=== PATIENT | female | born 1975 | race Two or more races ===

== ENCOUNTER → 2024-10-03 | Outpatient (CLI) | payer MEDICAID, SELFPAY ==
--- NOTE | 2024-10-03 13:41 | XR_ITS ---
Examination: Breast ultrasound, unilateral, right complete Date and time of exam: October 03, 2024 1352 hours INDICATIONS: Right breast sonogram July 29, 2024 12:00 nodule lobular margins 1:00 nodule indistinct margins 19 x 16 mm, biopsy August 13, 20242023 Technique: Real-time ho scale ultrasonographic imaging performed right breast including all 4 quadrants as well as nipple retroareolar and axillary region. Findings: 1:00 cyst 7 x 7 mm 1:00 oval mass biopsied, 13 x 8 x 10 mm, lobular margins 2:00 cyst 6 x 6 mm 9:00 cyst 7 x 6 mm IMPRESSION: BI-RADS Category 3: Probably benign findings Recommend 1 additional 6 month right breast sonogram follow-up to document stability of nodule in the 1:00 position
== END | disposition home or self-care (01) ==
PROVIDERS: PCP Registered Nurse Community Health; Referring Provider Registered Nurse Community Health; Visit Provider Registered Nurse Community Health
DX: N63.12 Unspecified lump in the right breast, upper inner quadrant (principal)
CPT/HCPCS: 76641

== ENCOUNTER 2024-11-11 10:21 | Emergency (ER) | payer MEDICAID, SELFPAY ==
[2024-11-11 10:23] VITALS: BMI 26.6
[2024-11-11 11:11] VITALS: BP 115/82; PULSE 71; RESP 16; TEMP 36.6; O2SAT 99; BMI 26.9
--- NOTE | 2024-11-11 11:14 | XR_ITS ---
Examination: Breast ultrasound, unilateral, right Date and time of exam: November 11, 2024 1328 hours INDICATIONS: Right breast pain right axillary pain discoloration right breast with indentation 4 months Technique: Real-time ho scale ultrasonographic imaging performed right breast including all 4 quadrants as well as nipple retroareolar and axillary region. Findings: 1:00 oval mass lobular margins 7 x 9 mm 1:00 oval mass lobular margins 7 x 7 mm 1:00 irregular area of edema 3.6 x 1.2 x 2.5 cm 1:00 cyst 6 x 5 mm 9:00 cyst 7 x 5 mm 28 mm axillary lymph node IMPRESSION: BI-RADS Category 0: Incomplete: Need additional imaging evaluation 1:00 area of irregular edema 3.6 x 1.2 x 2.5 cm Recommend diagnostic mammography follow-up
--- NOTE | 2024-11-11 16:12 | EDNOTE_ITS ---
<Statement entered by Sharron Reid MD - 11/15/24 09:17> As co-signing physician, I was present and available for consult prn. I concur with the plan and care as documented by the midlevel provider. ED General RME/HPI General Chief complaint: General Adult/Misc Complain Stated complaint: LUMP TO R BREAST X 5 MONTHS Time Seen by Provider: 11/11/24 10:28 Arrival date/time: 11/11/24 10:21 49-year-old female presents to the Emergency Department today complaints of a lump right breast ongoing for the last 5 months patient has had multiple outpatient imaging patient reports that in the last couple of day swelling is worsened. Currently patient is taking a course of antibiotics Limitations: no limitations Related Data Previous Rx's ?Medication ?Instructions ?Recorded ondansetron HCl 4 mg tablet 4 mg PO Q6H PRN nausea and 03/29/21 (Zofran) vomiting #10 tabs docusate sodium 100 mg capsule 100 mg PO BID #40 caps 04/18/21 (Colace) hydrocodone 5 mg-acetaminophen 325 1 tab PO Q6H PRN pain (scale score 04/18/21 mg tablet 7-10) #20 tabs ibuprofen 600 mg tablet 600 mg PO Q8H PRN pain (scale 04/18/21 score 4-6) #15 tabs dexamethasone 6 mg tablet 6 mg PO QDAY #7 tabs 09/12/23 meclizine 50 mg tablet 50 mg PO BID PRN dizziness #20 tabs 01/03/24 amoxicillin 500 mg capsule 500 mg PO BID #14 caps 05/19/24 meloxicam 7.5 mg tablet 7.5 mg PO QDAY #10 tabs 05/19/24 Allergies Allergy/AdvReac Type Severity Reaction Status Date / Time No Known Allergies Allergy Verified 11/11/24 10:22 Review of Systems Review of Systems Systems Reviewed: All systems reviewed, normal except as documented Constitutional Constitutional: Reports system reviewed and no additional complaints, except as documented, Denies fever(s) and Denies headache(s) Eyes Eyes: Reports system reviewed and no additional complaints, except as documented and Denies blurry vision ENT Ears, Nose, Mouth, and Throat: Reports system reviewed and no additional complaints, except as documented, Denies headache(s), Denies nasal congestion and Denies nasal discharge Cardiovascular Cardiovascular: Reports system reviewed and no additional complaints, except as documented, Denies chest pain and Denies dyspnea Respiratory Respiratory: Reports system reviewed and no additional complaints, except as documented, Denies chest congestion, Denies cough and Denies dyspnea Gastrointestinal Gastrointestinal: Reports system reviewed and no additional complaints, except as documented and Denies abdominal pain Integumentary/Breasts Skin/Breast: Reports system reviewed and no additional complaints, except as documented, Denies rash, Reports change in breast shape, Reports breast mass and Reports breast pain Neurologic Neurologic: Reports system reviewed and no additional complaints, except as documented, Reports as per HPI and Denies headache(s) Past Medical History Past Medical History NEUROLOGIC: Negative Neurological Disorders or Seizures CARDIAC: Negative Cardiac Disorders, Congestive Heart Failure, Edema, Cellulitis or Varicose Veins RESPIRATORY: Negative Chronic Obstructive Pulmonary Disease (COPD), Asthma, Tuberculosis or Pulmonary Embolism GASTROINTESTINAL: Positive Gastrointestinal Disorders and Gall Bladder Disease (FOR THIS PROC); Negative Hepatitis GENITOURINARY: Negative Genitourinary Disorders or Renal Disease REPRODUCTIVE: Positive Previous Pregnancies (X5) MUSCULOSKELETAL: Negative Musculoskeletal Disorders ENDOCRINE: Positive Systemic Lupus Erythematosus; Negative Endocrine Disorders, Diabetes Mellitus Type 1 or Diabetes Mellitus Type 2 HEMATOLOGIC: Negative Blood Disorders or Sickle Cell Disease OTHER HISTORY: Positive Chicken Pox; Negative Hospitalization, Autoimmune Disease, Shingles, Falls, Blood Transfusions, Blood Transfusion Reaction, Anesthesia Reactions, Chemotherapy, Radiation Therapy, MRSA, Measles, Mumps or Cancer Family History FAMILY HISTORY: Positive Family Cardiac Disorders (MOTHER (CVA,HTN),BROTHER (HTN)), Family Cancer (MOTHER (BRAIN)) and Family Surgery (MOTHER,FATHE R,BROTHER,SISTER); Negative Family Psychiatric Problems, Family Respiratory Disorders, Family Gastrointestinal Problems or Family Anesthesia Reaction Surgical History SURGICAL: Positive Tubal Ligation; Negative Pacemaker Social History SMOKING STATUS: Never smoker ED Exam General Limitations: Present no limitations General appearance: Present alert and in no apparent distress Head Head exam: Present atraumatic Eye Eye exam: Present normal appearance, PERRL and EOMI ENT ENT exam: Present normal exam, normal oropharynx and mucous membranes moist Neck Neck exam: Present normal inspection, full ROM and trachea midline Chest Chest inspection: Present symmetric chest wall rise and tenderness (Lump right breast) Respiratory Respiratory exam: Present normal lung sounds bilaterally Cardiovascular Cardiovascular exam: Present regular rate, normal rhythm and normal heart sounds Abdominal Exam Abdominal exam: Present soft and normal bowel sounds Extremities Exam Extremities exam: Present normal inspection and full ROM Back Exam Back exam: Present normal inspection and full ROM Neurological Exam Neurological exam: Present alert, oriented X3 and CN II-XII intact Psychiatric Psychiatric exam: Present normal affect and normal mood Skin Skin exam: Present warm, dry, intact and normal color Course Quality Measures none Orders Category Date Time Status US breast RT complete Stat Exams 11/11/24 11:14 Completed Vital Signs Vital signs: Vital Signs Temperature 97.9 F 11/11/24 11:11 Pulse Rate 71 11/11/24 11:11 Respiratory Rate 16 11/11/24 11:11 Blood Pressure 115/82 11/11/24 11:11 Pulse Oximetry (%) 99 11/11/24 11:11 Oxygen Delivery Method Room Air 11/11/24 11:11 O2 saturation 99% room air within normal limits MDM Patient data External records reviewed:: [facility] previous records Clinical information provided by:: patient Social determinants that could affect healthcare access:: none Patient has the following chronic illnesses:: see hx How is presenting disease/condition affected by chronic disease/condition?: no chronic disease Evaluation data The following diagnostics were reviewed and interpreted by me:: radiology exam(s) Lab and/or radiology exams considered but not ordered:: radiology obtain Interpretation Summary: Reviewed by me Medications Medications considered but not ordered:: No meds Medication administrations:: No meds Consultations Consultation(s) initiated? (list below): No Diagnosis Differential Diagnosis ED Complaint MDM: Breast abscess, breast pain, malignancy Most likely diagnosis given after review of the tests above:: Malignancy right breast Admission Indicated Admission indicated?: not indicated Explain why admission is indicated or not indicated:: No criteria Admission Request Was there a request for admission?: No Disposition Plan Disposition Plan: Discharge Discharge Attestation Discharge Attestation: The patient and all family members were given an opportunity to ask questions and understood the discharge instructions. Discharge instructions specifically effects, indications for sooner follow up or return to the emergency department, and the expected course of current diagnosis. Patient condition: Stable Medical Decision Making MDM Narrative MDM Narrative: 49-year-old female presents to the Emergency Department today complaints of a lump right breast ongoing for the last 5 months patient has had multiple outpatient imaging patient reports that in the last couple of day swelling is worsened I reviewed patient's outpatient imaging Ultrasound of the breast obtained today patient does have swelling to the breast There is no erythema or redness do not suspect this is infectious in nature patient hemodynamically stable Patient given a copy of her ultrasound report she is instructed to follow-up with her PCP in order to get a diagnostic mammogram For emergent concerns patient struck to return immediately Differential Diagnosis Differential Diagnosis: Breast abscess, breast pain, malignancy Medical Records Medical records reviewed: Yes I reviewed the patient's medical records. Radiology Data Radiology results reviewed: Yes I reviewed the patient's radiology results. Discharge Plan Plan Patient Disposition: HOME (Self Care) Disposition Comment: Stable Prescriptions/Referrals Prescriptions/Med Rec: No Action hydrocodone-acetaminophen 5-325 mg tablet 1 tab PO Q6H MDD 4 PRN (Reason: pain (scale score 7-10)) Qty: 20 0RF docusate sodium [Colace] 100 mg capsule 100 mg PO BID Qty: 40 0RF ibuprofen 600 mg tablet 600 mg PO Q8H PRN (Reason: pain (scale score 4-6)) Qty: 15 0RF ondansetron HCl [Zofran] 4 mg tablet 4 mg PO Q6H PRN (Reason: nausea and vomiting) Qty: 10 0RF meloxicam 7.5 mg tablet 7.5 mg PO QDAY Qty: 10 0RF amoxicillin 500 mg capsule 500 mg PO BID Qty: 14 0RF dexamethasone 6 mg tablet 6 mg PO QDAY Qty: 7 0RF meclizine 50 mg tablet 50 mg PO BID PRN (Reason: dizziness) Qty: 20 0RF Referrals: Candace Dietz, BUSINESS ASST [Primary Care Provider] - In 1 week Problem List Clinical Impression: Breast mass Patient/Caregiver Discharge Instructions Education Materials: Breast Anatomy Additional Instructions: Please follow-up with your primary care doctor in order get a referral for outpatient diagnostic mammogram for worsening symptoms return immediately Please bring copy of your ultrasound report to your primary care doctor for further evaluation Print Language: Hebrew Stand Alone Forms: Natalie Award Info., Work/School Release, Patient Portal Info Letter PA/BUSINESS AS[facility] Supervising Physician PA/ALIE Supervising Physician: Dr. reid
== END 2024-11-11 16:20 | disposition home or self-care (01) ==
PROVIDERS: Emergency Provider Emergency Medicine; PCP Registered Nurse Community Health
DX: N63.10 Unspecified lump in the right breast, unspecified quadrant (principal)
CPT/HCPCS: 76641; 99284

== ENCOUNTER → 2024-11-13 | Outpatient (CLI) | payer MEDICAID, SELFPAY ==
--- NOTE | 2024-11-13 | XR_ITS ---
Examination: Diagnostic digital mammography, unilateral, right Computer aided detection 3-D breast Tomosynthesis, unilateral Date and time of exam: November 13, 2024 1257 hours INDICATIONS: Palpable lump right breast note is beginning 3 months ago, history right breast biopsy August 13, 2024 Technique: Nonmagnified MLO, CC views of the right breast have been obtained, reconstructed from 3-D Tomosynthesis images. R2 computer aided detection program utilized for evaluation of suspicious masses and/or abnormal calcifications. 3-D Tomosynthesis images obtained. Findings: The breast is heterogeneously dense, which may obscure small masses No suspicious masses Impression: BI-RADS category 3: Probably benign findings Recommend 6 month right mammogram and right breast sonography follow-up
== END | disposition home or self-care (01) ==
LOC: CDIM 12:34
PROVIDERS: Referring Provider Obstetrics & Gynecology; Visit Provider Obstetrics & Gynecology
DX: R92.333 Mammographic heterogeneous density, bilateral breasts (principal)
CPT/HCPCS: 77061; 77065; G0279

== ENCOUNTER 2025-01-01 06:20 | Day surgery (SDC) | payer MEDICAID, SELFPAY ==
--- NOTE | 2024-12-26 07:00 | EKG_ITS ---
[facility] [place] [facility] Test Date: 2024-12-26 Pat Name: DARRYL GUNTER Department: Room: - Gender: Female Cook Dessert: RT STUDENT : 1975 Requested By: Vangie Aguilar Order Number: [id number] Reading MD: Vangie Aguilar Measurements Intervals [place] Rate: 52 P: 32 OR: 195 QRS: 50 QRSD: 89 T: 62 QT: 415 QTc: 389 Interpretive Statements SINUS BRADYCARDIA WITH SINUS ARRHYTHMIA Compared to ECG 01/03/2024 11:42:36 Sinus rhythm no longer present /store/S0/[id number].pdf
[2024-12-26 08:39] VITALS: BMI 26.7
[2024-12-26 11:10] LABS: Basophils # (Auto) 0.1 Thou/mm3 (0.0-0.2); Basophils % (Auto) 1 % (0-2.5); Eosinophils # (Auto) 0.3 Thou/mm3 (0.0-0.5); Eosinophils % (Auto) 6 % (0-10); Hematocrit 42.6 % (36.0-46.0); Immature Granulocytes % (Auto) 0 % (0-0); Immature Granulocytes Auto 0.01 Thou/mm3 (0.00-0.00); Lymphocytes # (Auto) 1.9 Thou/mm3 (1.0-4.8); Lymphocytes % (Auto) 34 % (10-50); Mean Corpuscular HGB Conc 32.9 g/dl (31.0-37.0); Mean Corpuscular Hemoglobin 29.8 pg (25.0-35.0); Mean Corpuscular Volume 91 fL (80-100); Monocytes # (Auto) 0.4 Thou/mm3 (0.0-0.8); Monocytes % (Auto) 8 % (0-12); Neutrophils # (Auto) 2.8 Thou/mm3 (1.8-7.7); Neutrophils % (Auto) 50 % (37-80); Nucleated Red Blood Cell % 0 /100 WBC (0); Platelet Count 358 Thou/mm3 (140-440); RDW Standard Deviation 42.3 fL (36.4-46.3); White Blood Count 5.5 Thou/mm3 (3.6-11.0)
[2024-12-26 11:34] LABS: Anion Gap 8 (7-16); BUN/Creatinine Ratio 24 Ratio (12-20); Blood Urea Nitrogen 19 mg/dL (9-23); Calcium 9.6 mg/dL (8.3-10.6); Chloride 108 mMol/L (98-107); Creatinine (Component) 0.8 mg/dL (0.6-1.3); Estimated Creatinine Clearance 75.2 mL/min (>60); Glucose 90 mg/dL (74-106); Osmolality,Calculated 287 (275-295); Potassium 4.7 mMol/L (3.4-5.1); Sodium 143 mMol/L (136-145); eGFR > 60 See Note
[2025-01-01] VITALS (8 sets, daily range): BP systolic 108–130; BP diastolic 70–79; PULSE 60–88; RESP 12–19; TEMP 36.3–36.6; O2SAT 92–100; BMI 26.7
--- NOTE | 2025-01-01 08:59 | ESOP_ITS ---
Date of Procedure 01/01/25 Pre Op Diagnosis Right breast mass on the inner lower quadrant Post Op Diagnosis Right breast mass in the inner lower quadrant Procedure Right breast lumpectomy Findings An approximately 2.5 cm hard mass in the inner and lower quadrant of right breast Procedure Description Patient brought into the operating room in supine position. After administration of general endotracheal anesthesia, patient's right breast prepped and draped in standard surgical manner. After administration of local anesthesia an approximately 4 cm elliptical incision was made in the inner and lower quadrant of right breast and dissection was deepened into soft tissue. Circumferential flaps were raised. Underlying breast mass was circumferentially dissected off surrounding breast tissue and excised. The margin of normal breast tissue was excised around the mass, the posterior margin was close to the pectoralis fascia. The mass was removed and marked with sutures to orient the pathologist. The wound was washed and irrigated and hemostasis achieved using electrocautery. Deep breast tissue reapproximated with interrupted sutures using 2-0 Vicryl. Subcutaneous tissue closed with interrupted sutures using 3-0 Vicryl and incision was closed with 4-0 Monocryl in subcuticular fashion. Dermabond and pressure dressings applied. A breast binder was placed. Patient tolerated procedure well. She was extubated, breathing spontaneously without difficulty and was transferred to postanesthesia care in stable condition. Ins truments, needles and sponge counts were reported to be correct x 2. Anesthesia GETA and local Pathology / specimen Other (Right breast mass) Estimated Blood Loss 5 Condition Stable Disposition PACU Surgeon Vangie Aguilar MD Surgical Staff Operation Date: 01/01/25 08:30 Case Staff LAY OUT MACHINE OPERATOR:
--- NOTE | 2025-01-01 09:08 | SUR.PHASEI ---
0908: Pt. wakes to name then drifts back to sleep, vitals stable, breathing unlabored, no complaint of pain or nausea, dressing to breast CDI, no active bleed noted, report received from Stef GAINES and Kylah NEGRO.
[2025-01-01] MEDS: fentaNYL CIT INJ 50 mCg/ML AMP 2ML IV (09:43)
--- NOTE | 2025-01-01 10:10 | SUR.PHASEII ---
1010: Pt. AAOx4, vitals stable, breathing unlabored, no complaint of pain or nausea, dressing to breast CDI, no active bleed noted, pt. tolerated sips of water well, pt. ambulated to wheelchair with steady gait and no assist, no complications. Gave discharge instructions to the pt. and her ride, both verbalized understanding and had no further questions. Pt. left with all personal belongings.
== END 2025-01-01 10:10 | disposition home or self-care (01) ==
PROVIDERS: PCP Registered Nurse Community Health; Referring Provider Surgery; Visit Provider Surgery
PROC: (CPT 19301; principal; 2025-01-01 08:30)
DX: N61.21 Granulomatous mastitis, right breast (principal); Z01.810 Encounter for preprocedural cardiovascular examination
CPT/HCPCS: 19120; 36415; 80048; 85025; 93005; A4217; A4649; J1100; J2250; J2405; J2704; J3010; J3490; Q9968

== ENCOUNTER 2025-01-11 17:10 | Emergency (ER) | payer MEDICAID, SELFPAY ==
[2025-01-11 17:24] VITALS: BP 125/75; PULSE 78; RESP 16; TEMP 36.8; O2SAT 99; BMI 27.2
--- NOTE | 2025-01-11 17:38 | PD.EDRME ---
Rapid Medical Screening Exam E Arrival date/time: 01/11/25 17:10 49-year-old female with no known medical history presents to the emergency room with a chief complaint of a tenderness, warmth, and pain to her right breast after removal of a mass on 01/01/2025. Patient began to develop a rash to her right shoulder neck and back. I have greeted and performed a focused initial assessment of this patient. A comprehensive ED assessment and evaluation of the patient, analysis of all test results, and completion of the medical decision making process will be conducted by additional ED providers. Chief Complaint: Skin/Abscess/Foreign Body Vital signs: Vital Signs Temperature 98.2 F 01/11/25 17:24 Pulse Rate 78 01/11/25 17:24 Respiratory Rate 16 01/11/25 17:24 Blood Pressure 125/75 01/11/25 17:24 Pulse Oximetry (%) 99 01/11/25 17:24 Oxygen Delivery Method Room Air 01/11/25 17:24 Vital signs reviewed by provider: Yes
[2025-01-11] MEDS: DiphenhydrAMINE ELIX 25 MG/10 ML UDC PO (17:52)
[2025-01-11] MEDS: FAMOTIDINE 20 MG TABLET PO (17:52)
[2025-01-11] MEDS: DEXAMETHASONE SOD PHOS INJ 10 MG/ML VIAL PO (17:52)
[2025-01-11] MEDS: cefTRIAXone 1,000 MG, LIDOCAINE 1% 20 ML 2.1 ML IM (17:53)
--- NOTE | 2025-01-11 18:18 | EDNOTE_ITS ---
ED Skin Abcess FB-RME/HPI General Chief complaint: Skin/Abscess/Foreign Body Stated complaint: RASH TO RIGHT ARM S/P SURGERY Time Seen by Provider: 01/11/25 18:07 Arrival date/time: 01/11/25 17:10 Limitations: no limitations RME / HPI RME / HPI narrative: 01/11/25 19:10 49-year-old female with past medical history of lupus presents to the emergency department for evaluation of pain under her right breast. Patient reports a excision of mass under her right breast on 01/01/2025. She reports development of red, bumpy rash to her right shoulder, neck, and back that has been worsening over the last x 3 days. She denies fever, chills, nausea, vomiting. She denies recent course of antibiotics. Denies history of similar symptoms following procedures in the past. 01/11/25 17:10 49-year-old female with no known medical history presents to the emergency room with a chief complaint of a tenderness, warmth, and pain to her right breast after removal of a mass on 01/01/2025. Patient began to develop a rash to her right shoulder neck and back. I have greeted and performed a focused initial assessment of this patient. A comprehensive ED assessment and evaluation of the patient, analysis of all test results, and completion of the medical decision making process will be conducted by additional ED providers. MD complaint: rash Relieving factors: none Exacerbating factors: none Context: other (Recent surgery.) Related Data Home Medications ?Medication ?Instructions ?Recorded ?Confirmed hydroxychloroquine 200 mg tablet 200 mg PO BID 5 12/26/24 Previous Rx's ?Medication ?Instructions ?Recorded meloxicam 7.5 mg tablet 7.5 mg PO QDAY #10 tabs 04/29 12/22 docusate sodium 100 mg capsule 100 mg PO BID #30 caps 01/01/25 (Colace) hydrocodone 5 mg-acetaminophen 325 1 tab PO Q6H PRN pa in (scale score 01/01/25 mg tablet 7-10) #15 tabs cephalexin 500 mg tablet 500 mg PO BID 7 days #14 tab s 01/11/25 Allergies Allergy/AdvReac Type Severity Reaction Status Date / Time No Known Allergies Allergy Verified 01/11/25 17:15 Review of Systems Constitutional Constitutional: Denies body ache(s), Denies chills and Denies fever(s) Eyes Eyes: Denies change in vision ENT Ears, Nose, Mouth, and Throat: Denies disequilibrium, Denies dizziness and Denies neck pain Cardiovascular Cardiovascular: Denies chest pain, Denies dyspnea and Denies palpitations Respiratory Respiratory: Denies change in phlegm color, Denies cough, Denies dyspnea, Denies hemoptysis and Denies wheezing Gastrointestinal Gastrointestinal: Denies abdominal pain and Denies nausea Musculoskeletal Musculoskeletal: Denies back pain, Denies myalgias, Denies neck pain and Denies tingling Integumentary/Breasts Skin/Breast: Reports rash (Red, bumpy mass right shoulder and posterior neck and upper back.), Reports skin swelling, Reports wounds (Surgical site incision infra right breast.) and Reports other (Mild swelling and tenderness to surgical site incision.) Neurologic Neurologic: Denies disequilibrium, Denies dizziness and Denies tingling Endocrine Endocrine: Denies palpitations Hematologic/Lymphatic Hematologic/Lymphatic: Denies easy bleeding, Denies easy bruising and Denies lymphadenopathy Allergic/Immunologic Allergic/Immunologic: Denies wheezing Past Medical History Past Medical History NEUROLOGIC: Negative Neurological Disorders or Seizures CARDIAC: Negative Cardiac Disorders, Congestive Heart Failure, Edema, Cellulitis or Varicose Veins RESPIRATORY: Negative Chronic Obstructive Pulmonary Disease (COPD), Asthma, Tuberculosis or Pulmonary Embolism GASTROINTESTINAL: Negative Gastrointestinal Disorders, Hepatitis or Gall Bladder Disease GENITOURINARY: Negative Genitourinary Disorders or Renal Disease REPRODUCTIVE: Positive Previous Pregnancies MUSCULOSKELETAL: Negative Musculoskeletal Disorders ENDOCRINE: Positive Endocrine Disorders and Systemic Lupus Erythematosus; Negative Diabetes Mellitus Type 1 or Diabetes Mellitus Type 2 HEMATOLOGIC: Negative Blood Disorders or Sickle Cell Disease OTHER HISTORY: Positive Chicken Pox; Negative Hospitalization, Autoimmune Disease, Shingles, Falls, Blood Transfusions, Blood Transfusion Reaction, Anesthesia Reactions, Chemotherapy, Radiation Therapy, MRSA, Measles, Mumps or Cancer Family History FAMILY HISTORY: Positive Family Cancer and Family Surgery; Negative Family Psychiatric Problems, Family Respiratory Disorders, Family Cardiac Disorders, Family Gastrointestinal Problems or Family Anesthesia Reaction Surgical History SURGICAL: Positive Tubal Ligation; Negative Pacemaker Social History SMOKING STATUS: Never smoker ED Exam General Limitations: Present no limitations General appearance: Present alert and in no apparent distress Head Head exam: Present atraumatic and normocephalic Eye Eye exam: Present normal appearance and EOMI ENT ENT exam: Present mucous membranes moist and normal external ear exam Neck Neck exam: Present normal inspection and full ROM; Absent tenderness, meningismus or lymphadenopathy Expanded Chest Exam Trauma: Present wound (Healing surgical incision at inferior right breast with mild erythema and tenderness to palpation.) and surgical incision; Absent crepitus or ecchymosis Respiratory Respiratory exam: Present normal lung sounds bilaterally; Absent respiratory distress Cardiovascular Cardiovascular exam: Present regular rate and +S1 Extremities Exam Extremities exam: Present normal inspection, full ROM and normal capillary refill Back Exam Back exam: Present normal inspection and full ROM Neurological Exam Neurological exam: Present alert and normal gait Psychiatric Psychiatric exam: Present normal affect Skin Skin exam: Present warm, dry, normal color and rash (Flesh-colored petechiae without surrounding expirations to her right shoulder and right dorsal trunk. No crepitus or cellulitic appearance.) Course Quality Measures none Orders Category Date Time Status Dexamethasone Inj [Decadron Inj] Med 01/11/25 17:32 Discontinued 10 mg PO X1 ONE DiphenhydrAMINE [Benadryl] Med 01/11/25 17:32 Discontinued 25 mg PO X1 ONE Famotidine [Pepcid] Med 01/11/25 17:32 Discontinued 20 mg PO X1 ONE cefTRIAXone [Rocephin] 1,000 mg Med 01/11/25 17:33 Discontinued Lidocaine 1% 20 ml [Xylocaine 1% 20 ML] 2.1 ml IM X1 Vital Signs Vital signs: Vital Signs Temperature 98.2 F 01/11/25 17:24 Pulse Rate 78 01/11/25 17:24 Respiratory Rate 16 01/11/25 17:24 Blood Pressure 125/75 01/11/25 17:24 Pulse Oximetry (%) 99 01/11/25 17:24 Oxygen Delivery Method Room Air 01/11/25 17:24 Pulse ox 99% on room air, within normal limits. Skin / Abscess / Foreign Body MDM Narrative MDM Narrative:: 49-year-old female with past medical history of lupus presents for evaluation of surgical site pain and rash right arm and inferior right breast. Patient had mass removed 10 days ago. Denies fever, chills. Vital signs reassuring. Considered systemic infection however vital signs and nontoxic appearance point away from sepsis. Mild erythema and induration at surgical site incision, otherwise wound appears to be well-healing. Mild flesh-colored petechiae right shoulder and right upper trunk with some improvement from initial appearance per patient following medication in the ED. Patient denied systemic symptoms and showed no signs of respiratory distress, therefore less concern for anaphylactic reaction at this time. Ultimately the patient was discharged with antibiotic for possible surgical site infection with plan to follow-up with surgeon in the next 24 to 48 hours. Patient was given strict return precautions and advised to monitor wound site for spreading redness, purulent discharge, and worsening rash. Patient was stable at time of discharge. Patient data External records reviewed:: [facility] previous records Clinical information provided by:: patient Social determinants that could affect healthcare access:: none Patient has the following chronic illnesses:: Lupus. How is presenting disease/condition affected by chronic disease/condition?: exacerbated by Evaluation data The following diagnostics were reviewed and interpreted by me:: other (specify) Lab and/or radiology exams considered but not ordered:: Considered not ordered. Interpretation Summary: Considered not ordered. Medications / Prescriptions Medications or Prescriptions considered but not ordered:: Rx given. Medication administrations:: Medication Administration History Discontinued Medications Ceftriaxone Sodium 1,000 mg/ (Lidocaine HCl 2.1 ml) 0 mg IM X1 ONE Stop: 01/11/25 17:34 Last Admin: 01/11/25 17:53 Dose: 1,000 mg Documented By: PARKER Comments: 2.1 ml lidocaine Dexamethasone Sodium Phosphate (Dexamethasone Sod Phos Inj 10 Mg/Ml Vial) 10 mg PO X1 ONE Stop: 01/11/25 17:33 Last Admin: 01/11/25 17:52 Dose: 10 mg Documented By: PARKER Diphenhydramine HCl (Diphenhydramine Elix 25 Mg/10 Ml Udc) 25 mg PO X1 ONE Stop: 01/11/25 17:33 Last Admin: 01/11/25 17:52 Dose: 25 mg Documented By: PARKER Famotidine (Famotidine 20 Mg Tablet) 20 mg PO X1 ONE Stop: 01/11/25 17:33 Last Admin: 01/11/25 17:52 Dose: 20 mg Documented By: PARKER Rx given. Consultations Consultation(s) initiated? (list below): No Diagnosis Skin/Abscess Differential Diagnosis: abscess of skin or subcutaneous tissue, cellulitis and contact dermatitis Most likely diagnosis given after review of the tests above:: Postop surgical site infection. Urticaria. Admission Indicated Admission indicated?: not indicated Admission Request Was there a request for admission?: No Disposition Plan Disposition Plan: Discharge Discharge Attestation Discharge Attestation: The patient and all family members were given an opportunity to ask questions and understood the discharge instructions. Discharge instructions specifically effects, indications for sooner follow up or return to the emergency department, and the expected course of current diagnosis. Patient condition: Stable Discharge Plan Plan Patient Disposition: HOME (Self Care) Disposition Comment: stable Prescriptions/Referrals Prescriptions/Med Rec: New cephalexin 500 mg tablet 500 mg PO BID 7 Days Qty: 14 0RF Rx Instructions: Take antibiotic twice daily for the next 7 days for skin infection. No Action meloxicam 7.5 mg tablet 7.5 mg PO QDAY Qty: 10 0RF hydroxychloroquine 200 mg tablet 200 mg PO BID Patient Comments: take 1 tablet by mouth twice a day docusate sodium [Colace] 100 mg capsule 100 mg PO BID Qty: 30 0RF hydrocodone-acetaminophen 5-325 mg tablet 1 tab PO Q6H MDD 4 PRN (Reason: pain (scale score 7-10)) Qty: 15 0RF Referrals: No Primary/Family,Physician [Primary Care Provider] - In 1 week Problem List Clinical Impression: Abscess of skin or subcutaneous tissue, Urticaria Patient/Caregiver Discharge Instructions Other Activity Instructions:: Take Keflex twice daily as instructed. Consider prophylactic probiotic while taking antibiotic. Follow-up with primary care in the next 48 hours for reevaluation. Return to the ED if your symptoms worsen or change. Education Materials: ED Abscess Antibiotic ... Print Language: [place] Stand Alone Forms: Natalie Award Info., Patient Portal Info Letter PA/ALIE Supervising Physician PA/HEALTH CARE LAW SPECIALIST Supervising Physician: Dr. Tapia
== END 2025-01-11 19:23 | disposition home or self-care (01) ==
PROVIDERS: Emergency Provider Emergency Medicine
DX: N61.1 Abscess of the breast and nipple (principal); L50.9 Urticaria, unspecified
CPT/HCPCS: 96372; 99283; J0696; J1100; J3490; A9270

== ENCOUNTER 2025-01-14 20:40 | Emergency (ER) | payer MEDICAID, SELFPAY ==
[2025-01-14 20:40] VITALS: BMI 26.9
[2025-01-14 21:21] VITALS: BP 113/77; PULSE 80; RESP 16; TEMP 36.7; O2SAT 97
--- NOTE | 2025-01-15 02:38 | PD.EDALLER ---
ED Allergic Reaction RME/HPI General Chief complaint: Skin/Abscess/Foreign Body Stated complaint: BREAST RASH POST SX/WAS HERE SUNDAY Time Seen by Provider: 01/14/25 21:40 Arrival date/time: 01/14/25 20:40 49F with no significant PMH presents to ED with burning/itchy rash around R breast incision from breast surgery about [address] Aguilar. Patient was here recently and given Keflex w/o relief. Limitations: no limitations Related Data Home Medications ?Medication ?Instructions ?Recorded ?Confirmed hydroxychloroquine 200 mg tablet 200 mg PO BID 12/26/24 12/26/24 Previous Rx's ?Medication ?Instructions ?Recorded meloxicam 7.5 mg tablet 7.5 mg PO QDAY #10 tabs 05/19/24 docusate sodium 100 mg capsule 100 mg PO BID #30 caps 01/01/25 (Colace) hydrocodone 5 mg-acetaminophen 325 1 tab PO Q6H PRN pain (scale score 01/01/25 mg tablet 7-10) #15 tabs cephalexin 500 mg tablet 500 mg PO BID 7 days #14 tabs 01/11/25 clobetasol 0.05 % topical cream 1 applic topical BID 2 weeks #15 01/14/25 grams Allergies Allergy/AdvReac Type Severity Reaction Status Date / Time No Known Allergies Allergy Verified 01/11/25 17:15 Review of Systems Review of Systems Systems Reviewed: All systems reviewed, normal except as documented Constitutional Constitutional: Reports system reviewed and no additional complaints, except as documented, Denies fever(s) and Denies headache(s) ENT Ears, Nose, Mouth, and Throat: Denies disequilibrium and Denies headache(s) Cardiovascular Cardiovascular: Reports system reviewed and no additional complaints, except as documented, Denies chest pain and Denies dyspnea Respiratory Respiratory: Reports system reviewed and no additional complaints, except as documented, Denies cough and Denies dyspnea Gastrointestinal Gastrointestinal: Reports system reviewed and no additional complaints, except as documented, Denies abdominal pain, Denies nausea and Denies vomiting Integumentary/Breasts Skin/Breast: Reports as per HPI and Reports skin pain (burning) Neurologic Neurologic: Reports system reviewed and no additional complaints, except as documented, Denies confusion, Denies disequilibrium and Denies headache(s) Psychiatric Psychiatric: Denies confusion Past Medical History Past Medical History NEUROLOGIC: Negative Neurological Disorders or Seizures CARDIAC: Negative Cardiac Disorders, Congestive Heart Failure, Edema, Cellulitis or Varicose Veins RESPIRATORY: Negative Chronic Obstructive Pulmonary Disease (COPD), Asthma, Tuberculosis or Pulmonary Embolism GASTROINTESTINAL: Negative Gastrointestinal Disorders, Hepatitis or Gall Bladder Disease GENITOURINARY: Negative Genitourinary Disorders or Renal Disease REPRODUCTIVE: Positive Previous Pregnancies MUSCULOSKELETAL: Negative Musculoskeletal Disorders ENDOCRINE: Positive Endocrine Disorders and Systemic Lupus Erythematosus; Negative Diabetes Mellitus Type 1 or Diabetes Mellitus Type 2 HEMATOLOGIC: Negative Blood Disorders or Sickle Cell Disease OTHER HISTORY: Positive Chicken Pox; Negative Hospitalization, Autoimmune Disease, Shingles, Falls, Blood Transfusions, Blood Transfusion Reaction, Anesthesia Reactions, Chemotherapy, Radiation Therapy, MRSA, Measles, Mumps or Cancer Family History FAMILY HISTORY: Positive Family Cancer and Family Surgery; Negative Family Psychiatric Problems, Family Respiratory Disorders, Family Cardiac Disorders, Family Gastrointestinal Problems or Family Anesthesia Reaction Surgical History SURGICAL: Positive Tubal Ligation; Negative Pacemaker Social History SMOKING STATUS: Never smoker ED Exam General Limitations: Present no limitations General appearance: Present alert and in no apparent distress Head Head exam: Present atraumatic Eye Eye exam: Present normal appearance, PERRL and EOMI ENT ENT exam: Present normal exam, normal oropharynx and mucous membranes moist Neck Neck exam: Present normal inspection, full ROM and trachea midline Chest Chest inspection: Present symmetric chest wall rise Expanded Chest Exam Breast: right: erythema and other (vesicles/blistering) Respiratory Respiratory exam: Present normal lung sounds bilaterally Cardiovascular Cardiovascular exam: Present regular rate, normal rhythm and normal heart sounds Abdominal Exam Abdominal exam: Present soft and normal bowel sounds Extremities Exam Extremities exam: Present normal inspection and full ROM Back Exam Back exam: Present normal inspection and full ROM Neurological Exam Neurological exam: Present alert, oriented X3 and CN II-XII intact Psychiatric Psychiatric exam: Present normal affect and normal mood Skin Skin exam: Present warm, dry, intact and normal color Course Quality Measures none Vital Signs Vital signs: Vital Signs Temperature 98.1 F 01/14/25 21:21 Pulse Rate 80 01/14/25 21:21 Respiratory Rate 16 01/14/25 21:21 Blood Pressure 113/77 01/14/25 21:21 Pulse Oximetry (%) 97 01/14/25 21:21 Oxygen Delivery Method Room Air 01/14/25 21:21 O2 at 97% on RA and WNLs Allergic Reaction MDM Narrative MDM Narrative:: 49F with no significant PMH presents to ED with burning/itchy rash around R breast incision from breast surgery about [address] Aguilar. Patient was here recently and given Keflex w/o relief. Physical exam with director clinical research reveals area of blistering/vesicles around incision cecilia on R breast that is covered in tape. Patient is afebrile, calm, and alert. Likely contact dermatitis. Meds and developmental training counselor given. Patient data External records reviewed:: [facility] previous records Clinical information provided by:: patient Social determinants that could affect healthcare access:: none Patient has the following chronic illnesses:: none How is presenting disease/condition affected by chronic disease/condition?: no chronic disease Evaluation data The following diagnostics were reviewed and interpreted by me:: other (specify) (none) Lab and/or radiology exams considered but not ordered:: not ordered Interpretation Summary: n/a Medications / Prescriptions Medications or Prescriptions considered but not ordered:: not ordered Medication administrations:: n/a Consultations Consultation(s) initiated? (list below): No Diagnosis Differential Diagnosis allergic reaction: anaphylaxis, allergic reaction, angioedema, contact dermatitis, adverse reaction to drug, viral enanthem and urticaria Most likely diagnosis given after review of the tests above:: contact dermatitis Admission Indicated Admission indicated?: not indicated Admission Request Was there a request for admission?: No Disposition Plan Disposition Plan: Discharge Discharge Attestation Discharge Attestation: The patient and all family members were given an opportunity to ask questions and understood the discharge instructions. Discharge instructions specifically effects, indications for sooner follow up or return to the emergency department, and the expected course of current diagnosis. Patient condition: Stable Discharge Plan Plan Patient Disposition: HOME (Self Care) Disposition Comment: STable Prescriptions/Referrals Prescriptions/Med Rec: New clobetasol 0.05 % cream 1 applic topical BID 14 Days Qty: 15 0RF Rx Instructions: Do not use on face or skin folds No Action meloxicam 7.5 mg tablet 7.5 mg PO QDAY Qty: 10 0RF hydroxychloroquine 200 mg tablet 200 mg PO BID Patient Comments: take 1 tablet by mouth twice a day docusate sodium [Colace] 100 mg capsule 100 mg PO BID Qty: 30 0RF hydrocodone-acetaminophen 5-325 mg tablet 1 tab PO Q6H MDD 4 PRN (Reason: pain (scale score 7-10)) Qty: 15 0RF cephalexin 500 mg tablet 500 mg PO BID 7 Days Qty: 14 0RF Rx Instructions: Take antibiotic twice daily for the next 7 days for skin infection. Problem List Clinical Impression: Contact dermatitis Patient/Caregiver Discharge Instructions Education Materials: ED Contact Dermatitis Additional Instructions: Please follow-up with PCP within 24-48 hours and return immediately if symptoms worsen. Print Language: Wolof Stand Alone Forms: Patient Portal Info Letter PA/DIRECTOR ORGANIZATIONAL Supervising Physician PA/ALIE Supervising Physician: Dr. Tapia
== END 2025-01-14 21:54 | disposition home or self-care (01) ==
LOC: SERX 21:52
PROVIDERS: Emergency Provider Emergency Medicine; PCP Registered Nurse Community Health
DX: L25.9 Unspecified contact dermatitis, unspecified cause (principal)
CPT/HCPCS: 99281

== ENCOUNTER → 2025-05-11 | Outpatient (CLI) | payer MEDICAID, SELFPAY ==
--- NOTE | 2025-05-11 13:00 | XR_ITS ---
Examination: Breast ultrasound complete, bilateral Date and time of exam: May 11, 2025 1320 hours INDICATIONS: Right axillary pain several years, 1:00 nodule 7 mm, 7 mm and irregular area of edema 3.6 cm in the 1:00 position right breast on sonogram November 11, 2024 Technique: Real-time grayscale ultrasonographic imaging bilateral breasts, including all 4 quadrants as well as nipple retroareolar and axillary regions. Findings: Sonographic images right breast 1:00 nodule 6 x 7 mm circumscribed 1:00 nodule circumscribed 7 x 7 mm 2:00 nodule circumscribed 11 x 11 mm Retroareolar cyst 7 x 9 mm 3.1 cm right axillary lymph node Sonographic images left breast 12:00 nodule circumscribed 6 x 6 mm 1:00 probable lymph node intramammary 12 x 5 mm 1:00 nodule lobular margins with marker 18 x 17 mm 10:00 cyst 13 x 13 mm 9:00 cyst 11 x 9 mm Multiple additional smaller nodules and cysts IMPRESSION: BI-RADS Category 3: Probably benign findings One additional 6 month bilateral breast sonography follow-up strongly recommended to document stability of nodules described above
--- NOTE | 2025-05-11 14:15 | XR_ITS ---
Examination: Diagnostic digital mammography, unilateral, right Computer aided detection 3-D breast Tomosynthesis, unilateral Date and time of exam: May 11, 2025 1344 hours INDICATIONS: History palpable lump right breast beginning August 2024 Technique: Nonmagnified MLO, CC views of the right breast have been obtained, reconstructed from 3-D Tomosynthesis images. R2 computer aided detection program utilized for evaluation of suspicious masses and/or abnormal calcifications. 3-D Tomosynthesis images obtained. Findings: The breast is heterogeneously dense, which may obscure small masses 2:00 nodule 10 mm Small focus of microcalcifications 12:00 position right breast Impression: BI-RADS category 0: Incomplete: Need additional imaging evaluation Recommend follow-up spot tomographic views of 2:00 nodule right breast as well as spot magnification views microcalcifications 12:00 position right breast
== END | disposition home or self-care (01) ==
LOC: CDIM 12:53
PROVIDERS: Referring Provider Registered Nurse Community Health; Visit Provider Registered Nurse Community Health
DX: N63.12 Unspecified lump in the right breast, upper inner quadrant (principal); N60.01 Solitary cyst of right breast; N60.12 Diffuse cystic mastopathy of left breast; N63.15 Unspecified lump in the right breast, overlapping quadrants; R92.331 Mammographic heterogeneous density, right breast; R92.0 Mammographic microcalcification found on diagnostic imaging of breast
CPT/HCPCS: 76641; 77061; 77065; G0279

== ENCOUNTER → 2025-08-17 | Outpatient (CLI) | payer MEDICAID, SELFPAY ==
--- NOTE | 2025-08-17 08:00 | XR_ITS ---
Examination: Diagnostic digital mammography, unilateral, right Computer aided detection 3-D breast Tomosynthesis, unilateral Date and time of exam: August 17, 2005, 0754 hours INDICATIONS: Mammogram May 11, 2025 grouped suspicious microcalcifications 12 o'clock position right breast Technique: Nonmagnified MLO, CC views of the right breast have been obtained, reconstructed from 3-D Tomosynthesis images. R2 computer aided detection program utilized for evaluation of suspicious masses and/or abnormal calcifications. 3-D Tomosynthesis images obtained. Findings: The breast is heterogeneously dense, which may obscure small masses Grouped suspicious microcalcifications confirmed 12 o'clock position right breast Impression: BI-RADS category 4: Suspicious for malignancy Grouped suspicious microcalcifications 12 o'clock position right breast, biopsy is needed to exclude breast carcinoma, these calcifications are amenable to stereotactic breast biopsy for diagnosis
--- NOTE | 2025-08-17 08:33 | XR_ITS ---
Examination: Bilateral hips, AP pelvis, 5 views Technique: AP, lateral views both hips, AP pelvis, 5 views Exam date and time: August 17, 2025, 0835 hours INDICATION: Bilateral hip pain beginning 4 years ago FINDINGS: Minimal bilateral hip joint narrowing No hip or pelvic fracture No hip dislocations IMPRESSION: Minimal bilateral hip joint narrowing
--- NOTE | 2025-08-17 08:33 | XR_ITS ---
EXAMINATION: Cervical spine, 5 views Technique: Cervical spine AP, AP odontoid, lateral, bilateral obliques, 5 views Exam date and time: August 17, 2025, 0835 hours INDICATIONS: Chronic neck pain beginning 4 years ago. FINDINGS: Satisfactory line mid cervical vertebral bodies No cervical fracture Intact odontoid Early posterior osteophyte formation C5-C6 with mild bilateral neural foraminal stenosis IMPRESSION: Early degenerative disc disease C5-C6
--- NOTE | 2025-08-17 08:33 | XR_ITS ---
Examination: Lumbar spine, 5 views Technique: Lumbar spine AP, lateral, coned lateral lower lumbar spine, bilateral obliques 5 views Exam date and time: August 17, 2025, 0835 hours INDICATIONS: Lower back and hip pain beginning 4 years ago FINDINGS: Adequate alignment lumbar vertebral bodies Mild diffuse lumbar disc narrowing No lumbar fracture No spondylolisthesis IMPRESSION: Mild diffuse lumbar disc narrowing
== END | disposition home or self-care (01) ==
PROVIDERS: PCP Registered Nurse Community Health; Referring Provider Obstetrics & Gynecology; Visit Provider Internal Medicine Rheumatology
DX: M50.322 Other cervical disc degeneration at C5-C6 level (principal); M25.852 Other specified joint disorders, left hip; M25.851 Other specified joint disorders, right hip; M51.360 Other intervertebral disc degeneration, lumbar region with discogenic back pain only; R92.343 Mammographic extreme density, bilateral breasts; R92.0 Mammographic microcalcification found on diagnostic imaging of breast
CPT/HCPCS: 72050; 72110; 73523; 77061; 77065; G0279

== ENCOUNTER → 2025-08-20 | Outpatient (CLI) | payer MEDICAID, SELFPAY ==
--- NOTE | 2025-08-20 | XR_ITS ---
Examination: Diagnostic digital mammography, unilateral, left Computer aided detection 3-D breast Tomosynthesis, unilateral Date and time of exam: August 20, 2025, 0834 hours INDICATIONS: Left breast lump noticed beginning 1 year ago, history of left breast biopsy Technique: Nonmagnified MLO, CC views of the left breast have been obtained, reconstructed from 3-D Tomosynthesis images. R2 computer aided detection program utilized for evaluation of suspicious masses and/or abnormal calcifications. 3-D Tomosynthesis images obtained. Findings: The breast is heterogeneously dense, which may obscure small masses Multiple grouped microcalcifications near the breast biopsy marker site upper left breast 12 o'clock position The palpable marker is at the site of a circumscribed nodule 1 o'clock position, measuring 8 mm Impression: BI-RADS category 3: Probably benign findings Recommend 1 additional 6-month left mammogram follow-up to document stability of circumscribed nodule described above
--- NOTE | 2025-08-20 | XR_ITS ---
Examination: Breast ultrasound, unilateral, left complete Date and time of exam: August 20, 2025, 0809 hours INDICATIONS: Palpable lump left breast 1 year, multiple breast nodules on breast sonogram May 11, 2025 Technique: Real-time ho scale ultrasonographic imaging performed left breast including all 4 quadrants as well as nipple retroareolar and axillary region. Findings: Multiple benign cysts 1:00 nodule lobular margins 14 x 17 mm IMPRESSION: BI-RADS Category 3: Probably benign findings Recommend 1 additional 6-month left breast sonogram follow-up to document stability at 1:00 nodule left breast described above
== END | disposition home or self-care (01) ==
LOC: CDIM 07:42
PROVIDERS: PCP Registered Nurse Community Health; Referring Provider Obstetrics & Gynecology; Visit Provider Obstetrics & Gynecology
DX: R92.332 Mammographic heterogeneous density, left breast (principal); N63.25 Unspecified lump in the left breast, overlapping quadrants; N63.21 Unspecified lump in the left breast, upper outer quadrant
CPT/HCPCS: 76641; 77061; 77065; G0279